=== PATIENT | male | born 1995 | race Caucasian/White ===

== ENCOUNTER 2018-01-10 15:55 | Emergency (ER) | payer OTHER ==
[~2018-01-10] VITALS: Ht 182.9 cm; Wt 91.1 kg
[~2018-01-10 15:55] MED LIST: DOCU-150 PO; OXYC-323 PO
[2018-01-10 16:27] VITALS: BP 133/75
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
== END 2018-01-10 17:07 | disposition home or self-care (01) ==
LOC: ER 15:55
DX: M54.2 Cervicalgia (principal); M54.6 Pain in thoracic spine; G89.11 Acute pain due to trauma; V49.69XA Unspecified car occupant injured in collision with other motor vehicles in traffic accident, initial encounter; Y93.89 Activity, other specified; Y92.488 Other paved roadways as the place of occurrence of the external cause; Y99.8 Other external cause status
CPT/HCPCS: 99281

== ENCOUNTER 2018-03-07 12:38 | Emergency (ER) | payer OTHER ==
[~2018-03-07] VITALS: Ht 182.9 cm; Wt 90.0 kg
[~2018-03-07 12:38] MED LIST changes: -OXYC-323 PO; +OXYC1TAB15 PO
[2018-03-07 14:06] LABS: ALBUMIN 4.4 g/dL (3.4-5.0); ALBUMIN/GLOBULIN RATIO 1.1 (1.0-1.7); CALCIUM 9.7 mg/dL (8.5-10.1); CREATININE 0.9 mg/dL (0.7-1.3); GFR 103.7; POTASSIUM 3.9 mmol/L (3.5-5.1); TOTAL BILIRUBIN 0.6 mg/dL (0.2-1.0); TOTAL PROTEIN 8.5 g/dL (6.4-8.2)
[2018-03-07] MEDS: KETOROLAC 30 MG/ML VIAL. IV ONE (14:10)
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
[2018-03-07] MEDS ORDERED: KETOROLAC 60 MG/2 ML VIAL. IM ONE (14:34)
[2018-03-07] MEDS: KETOROLAC 60 MG/2 ML VIAL. IM ONE (14:41)
[2018-03-07 15:04] VITALS: BP 140/62
[2018-03-07] MEDS ORDERED: METH4TAB2 PO (15:15)
[2018-03-07] MEDS ORDERED: DICL50TA4 PO (15:15)
--- NOTE | 2018-03-07 15:15 | PHYS DOC ---
Past History Past Medical History: No Pertinent History, Other Past Surgical History: No Surgical History, Other Alcohol Use: None Drug Use: None Adult General Chief Complaint Chief Complaint: CHEST PAIN HPI HPI Patient is a 22-year-old male who presents with complaint of left-sided chest pain that he describes as sharp and stabbing in nature. Patient states that pain is worsened with deep breathing. He denies any cough. He also denies any fever. Patient rates the pain at a 6 to a 7 out of 10. He states that nothing has been improving the pain. He does admit to some discomfort in his back as well. He denies any nausea, vomiting or diaphoresis. He also denies any abdominal pain or lower extremity pain or swelling. Review of Systems Review of Systems Constitutional: Denies fever or chills [] Respiratory: Denies cough or shortness of breath [] Cardiovascular: No additional information not addressed in HPI [] GI: Denies abdominal pain, nausea, vomiting or diarrhea [] Musculoskeletal: Admits to mild back pain [] Integument: Denies rash or skin lesions [] All other systems were reviewed and found to be within normal limits, except as documented in this note. Current Medications Current Medications Current Medications Medications (Trade) Dose Ordered Sig/Yasmin Start Time Stop Time Status Last Admin Dose Admin Ketorolac Tromethamine (Toradol 30mg Vial) 30 mg 1X ONCE 03/07/18 14:10 03/07/18 14:11 DC Ketorolac Tromethamine (Toradol Im) 60 mg 1X ONCE 03/07/18 14:45 03/07/18 14:46 DC 03/07/18 14:41 60 MG Allergies Allergies Allergies Coded Allergies Type Severity Reaction Last Updated Verified No Known Drug Allergies 06/02/14 No Physical Exam Physical Exam Constitutional: Well developed, well nourished, no acute distress, non-toxic appearance. [] HENT: Normocephalic, atraumatic, bilateral external ears normal, oropharynx moist, no oral exudates, nose normal. [] Eyes: PERRLA, EOMI, conjunctiva normal, no discharge. [] Neck: Normal range of motion, no tenderness, supple, no stridor. [] Cardiovascular: Regular rate and rhythm. There is reproducible chest wall tenderness along the left mid to lower sternal border.[] Lungs & Thorax: Bilateral breath sounds clear to auscultation [] Abdomen: Bowel sounds normal, soft, no tenderness. [] Skin: Warm, dry, no erythema, no rash. [] Back: There is tenderness to palpation at T8 on the left with mild spasm in the paraspinal musculature at this level. [] Extremities: No tenderness, no cyanosis, no clubbing, ROM intact, no edema. [] Neurologic: Alert and oriented X 3, normal motor function, normal sensory function, no focal deficits noted. [] Current Patient Data Vital Signs Vital Signs Date Time Temp Pulse Resp B/P (MAP) Pulse Ox O2 Delivery O2 Flow Rate FiO2 03/07/18 12:38 97.9 69 13 152/83 (106) 99 Room Air Lab Results Laboratory Tests Test 03/07/18 13:26 Sodium Level 139 mmol/L (136-145) Potassium Level 3.9 mmol/L (3.5-5.1) Chloride Level 102 mmol/L (98-107) Carbon Dioxide Level 25 mmol/L (21-32) Anion Gap 12 (6-14) Blood Urea Nitrogen 9 mg/dL (8-26) Creatinine 0.9 mg/dL (0.7-1.3) Estimated GFR (Cockcroft-Gault) 103.7 BUN/Creatinine Ratio 10 (6-20) Glucose Level 78 mg/dL (70-99) Calcium Level 9.7 mg/dL (8.5-10.1) Total Bilirubin 0.6 mg/dL (0.2-1.0) Aspartate Amino Transferase (AST) 26 U/L (15-37) Alanine Aminotransferase (ALT) 29 U/L (16-63) Alkaline Phosphatase 72 U/L (46-116) Troponin I Quantitative < 0.017 ng/mL (0-0.055) Total Protein 8.5 g/dL (6.4-8.2) H Albumin 4.4 g/dL (3.4-5.0) Albumin/Globulin Ratio 1.1 (1.0-1.7) EKG EKG EKG demonstrates normal sinus rhythm with no ST segment abnormalities.[] Radiology/Procedures Radiology/Procedures [] Impressions: Chest x-ray demonstrates no acute process. Course & Med Decision Making Course & Med Decision Making Pertinent Labs and Imaging studies reviewed. (See chart for details) [] Dragon Disclaimer Dragon Disclaimer This electronic medical record was generated, in whole or in part, using a voice recognition dictation system. Departure Departure: Impression: Primary Impression: Costochondritis Disposition: 01 HOME, SELF-CARE Condition: STABLE Referrals: JAMES ADRIAN PA-C (PCP) Patient Instructions: Costochondritis Scripts Methylprednisolone (MEDROL) 4 Mg Tab.ds.pk 1 PKG PO UD for inflammation, #1 PKG Prov: ANISHA HSU Jr. DO 03/07/18 Diclofenac Sodium (DICLOFENAC SODIUM) 50 Mg Tablet.dr 1 TAB PO BID PRN for PAIN, #20 TAB Prov: ANISHA HSU Jr. DO 03/07/18 ANISHA HSU Jr. DO Mar 07, 2018 15:15
--- NOTE | 2018-03-07 16:55 | EKG ---
[address] [address] Test Date: 2018-03-07 Test Time: 13:12:40 Pat Name: SILVINA RUIZ Department: Room: Gender: M Project Architect: BOBO : [id number] Requested By: ANISHA HSU Order Number: [id number] Reading MD: Measurements Intervals [place] Rate: 73 P: 53 NE: 168 QRS: 61 QRSD: 92 T: 17 QT: 374 QTc: 416 Interpretive Statements SINUS RHYTHM NO SPECIFIC ECG ABNORMALITIES RI6.01 Unconfirmed report No previous ECG available for comparison
== END 2018-03-07 15:30 | disposition home or self-care (01) ==
LOC: ER 12:38
DX: M94.0 Chondrocostal junction syndrome [Tietze] (principal); M54.89 Other dorsalgia
CPT/HCPCS: 36415; 71045; 80053; 84484; 93005; 96372; 99284; J1885